=== PATIENT | female | born 1960 | race Caucasian/White ===

== ENCOUNTER → 2022-03-14 | Outpatient (CLI) | payer BC, SELFPAY ==
[2022-03-14 10:20] LABS: Absolute Lymphocyte Count 2.31 X10^3/uL (0.83-4.51); Absolute Neutrophil Count 3.6 X10^3/uL (2.0-7.7); Basophil# 0.06 X10^3/uL; Basophil% 0.9 % (0-1); Eosinophil# 0.03 X10^3/uL; Eosinophils% 0.5 % (0-5); Hematocrit 39.3 % (37-47); Hemoglobin 12.7 g/dL (12.0-15.0); Lymphocyte # 2.31 X10^3/ul (0.83-4.51); Lymphocyte % 35.1 % (19-41); Mean Corp Hgb Conc 32.3 g/dL (32-36); Mean Corpuscular Hgb 28.5 pg (27.0-32.0); Mean Corpuscular Volume 88.1 fL (81-99); Mean Platelet Vol. 8.4 fl (6.2-12.0); Monocyte# 0.56 X10^3/uL; Monocyte% 8.5 % (0-10); NRBC Flagged by Analyzer 0 % (0-5); Neutrophil # 3.61 X10^3/uL (2.7-7.7); Neutrophil % 54.7 % (47-70); Platelet Count 344 K/mm3 (150-450); RBC Distribution Width CV 12.5 % (11.6-14.6); RBC Distribution Width SD 40.6 fl (35.1-43.9); Red Blood Count 4.46 M/mm3 (4.2-5.4); White Blood Count 6.6 K/mm3 (4.4-11.0)
[2022-03-14 10:45] LABS: ALB/GLOB Ratio 1.1 RATIO (0.9-2.4); AST(SGOT) 19 U/L (15-37); Alanine Aminotransfer ALT/SGPT 23 U/L (13-56); Albumin, Serum 3.9 g/dL (3.2-5.0); Alkaline Phosphatase 42 U/L (45-117); Anion Gap 5 (5-15); BUN 10 mg/dL (7-18); Calcium,Total 8.7 mg/dL (8.5-10.1); Chloride 104 mmol/L (98-107); Cholesterol 231 mg/dL (200); Creatinine, Serum 0.63 mg/dL (0.55-1.02); EST Glomerular Filtration Rate 103 mL/min (>60); Est Glom Filt Rate - Afr Amer 124 mL/min (>60); Globulin 3.6 g/dL (2.2-4.2); Glucose 80 mg/dL (74-106); High Density Lipoprotein 78 mg/dL; Potassium 3.9 mmol/L (3.5-5.1); Protein, Total 7.5 g/dL (6.4-8.2); Sodium Level 137 mmol/L (136-145); Triglycerides 90 mg/dL; Very Low Density Lipoprotein 18 mg/dL (5-40)
[2022-03-19 14:28] LABS: KEPPRA (LEVETIRACETAM) 14.5 ug/mL (10.0-40.0)
== END | disposition home or self-care (01) ==
LOC: LAB 09:30
PROVIDERS: PCP Family Medicine; Referring Provider Family Medicine; Visit Provider Family Medicine
DX: M20.61 Acquired deformities of toe(s), unspecified, right foot (principal); C67.2 Malignant neoplasm of lateral wall of bladder; G40.909 Epilepsy, unspecified, not intractable, without status epilepticus; Z13.220 Encounter for screening for lipoid disorders
CPT/HCPCS: 36415; 80053; 80061; 80177; 85025

== ENCOUNTER → 2022-08-22 | Outpatient (CLI) | payer BC, SELFPAY ==
[2022-08-22 11:23] LABS: Absolute Lymphocyte Count 2.17 X10^3/uL (0.83-4.51); Absolute Neutrophil Count 4.5 X10^3/uL (2.0-7.7); Basophil# 0.06 X10^3/uL; Basophil% 0.8 % (0-1); Eosinophil# 0.03 X10^3/uL; Eosinophils% 0.4 % (0-5); Hematocrit 39.6 % (37-47); Hemoglobin 12.7 g/dL (12.0-15.0); Lymphocyte # 2.17 X10^3/ul (0.83-4.51); Lymphocyte % 29.6 % (19-41); Mean Corp Hgb Conc 32.1 g/dL (32-36); Mean Corpuscular Hgb 28.7 pg (27.0-32.0); Mean Corpuscular Volume 89.4 fL (81-99); Mean Platelet Vol. 8.4 fl (6.2-12.0); Monocyte# 0.52 X10^3/uL; Monocyte% 7.1 % (0-10); NRBC Flagged by Analyzer 0 % (0-5); Neutrophil # 4.53 X10^3/uL (2.7-7.7); Neutrophil % 61.8 % (47-70); Platelet Count 339 K/mm3 (150-450); RBC Distribution Width CV 12.4 % (11.6-14.6); RBC Distribution Width SD 40.8 fl (35.1-43.9); Red Blood Count 4.43 M/mm3 (4.2-5.4); White Blood Count 7.3 K/mm3 (4.4-11.0)
[2022-08-22 11:47] LABS: ALB/GLOB Ratio 1.1 RATIO (0.9-2.4); AST(SGOT) 13 U/L (15-37); Alanine Aminotransfer ALT/SGPT 22 U/L (13-56); Albumin, Serum 3.9 g/dL (3.2-5.0); Alkaline Phosphatase 40 U/L (45-117); Anion Gap 5 (5-15); BUN 13 mg/dL (7-18); BUN/Creat Ratio 21.1 RATIO (10-20); Calcium,Total 8.9 mg/dL (8.5-10.1); Chloride 103 mmol/L (98-107); Cholesterol 228 mg/dL (200); Creatinine, Serum 0.62 mg/dL (0.55-1.02); EST Glomerular Filtration Rate 105 mL/min (>60); Est Glom Filt Rate - Afr Amer 127 mL/min (>60); Globulin 3.5 g/dL (2.2-4.2); Glucose 86 mg/dL (74-106); High Density Lipoprotein 91 mg/dL; Potassium 3.9 mmol/L (3.5-5.1); Protein, Total 7.4 g/dL (6.4-8.2); Sodium Level 138 mmol/L (136-145); Triglycerides 81 mg/dL; Very Low Density Lipoprotein 16 mg/dL (5-40)
[2022-08-22 12:12] LABS: HIV - WCH Non-Reactive (Nonreactive)
== END | disposition home or self-care (01) ==
PROVIDERS: PCP Family Medicine
DX: G40.909 Epilepsy, unspecified, not intractable, without status epilepticus (principal); C67.2 Malignant neoplasm of lateral wall of bladder; Z13.220 Encounter for screening for lipoid disorders; Z11.4 Encounter for screening for human immunodeficiency virus [HIV]; Z11.59 Encounter for screening for other viral diseases
CPT/HCPCS: 36415; 80053; 80061; 80177; 85025; 86703; 86803; 86804

== ENCOUNTER → 2022-11-03 | Outpatient (CLI) | payer BC, SELFPAY ==
[2022-11-04 18:49] LABS: KEPPRA (LEVETIRACETAM) 13.2 ug/mL (10.0-40.0)
== END | disposition home or self-care (01) ==
PROVIDERS: PCP Family Medicine; Referring Provider Family Medicine; Visit Provider Family Medicine
DX: G40.909 Epilepsy, unspecified, not intractable, without status epilepticus (principal)
CPT/HCPCS: 36415; 80177

== ENCOUNTER → 2023-02-27 | Outpatient (CLI) | payer BC, SELFPAY ==
[2023-02-27 16:18] LABS: Absolute Lymphocyte Count 1.98 X10^3/uL (0.83-4.51); Absolute Neutrophil Count 3.9 X10^3/uL (2.0-7.7); Basophil# 0.07 X10^3/uL; Basophil% 1.1 % (0-1); Eosinophil# 0.06 X10^3/uL; Eosinophils% 0.9 % (0-5); Hematocrit 39.1 % (37-47); Hemoglobin 12.5 g/dL (12.0-15.0); Lymphocyte # 1.98 X10^3/ul (0.83-4.51); Lymphocyte % 30.7 % (19-41); Mean Corpuscular Hgb 28.3 pg (27.0-32.0); Mean Corpuscular Volume 88.7 fL (81-99); Mean Platelet Vol. 9.1 fl (6.2-12.0); Monocyte# 0.42 X10^3/uL; Monocyte% 6.5 % (0-10); NRBC Flagged by Analyzer 0 % (0-5); Neutrophil # 3.91 X10^3/uL (2.7-7.7); Neutrophil % 60.6 % (47-70); Platelet Count 364 K/mm3 (150-450); RBC Distribution Width CV 12.6 % (11.6-14.6); RBC Distribution Width SD 40.7 fl (35.1-43.9); Red Blood Count 4.41 M/mm3 (4.2-5.4); White Blood Count 6.5 K/mm3 (4.4-11.0)
[2023-02-27 16:36] LABS: AST(SGOT) 14 U/L (15-37); Alanine Aminotransfer ALT/SGPT 23 U/L (13-56); Albumin, Serum 3.6 g/dL (3.2-5.0); Alkaline Phosphatase 48 U/L (45-117); Anion Gap 6 (5-15); BUN 11 mg/dL (7-18); BUN/Creat Ratio 15.1 RATIO (10-20); Calcium,Total 8.5 mg/dL (8.5-10.1); Chloride 107 mmol/L (98-107); Creatinine, Serum 0.73 mg/dL (0.55-1.02); EST Glomerular Filtration Rate 86 mL/min (>60); Est Glom Filt Rate - Afr Amer 104 mL/min (>60); Globulin 3.6 g/dL (2.2-4.2); Glucose 94 mg/dL (74-106); Iron 98 ug/dL (50-170); Iron Binding Capacity,Total 320 ug/dL (250-450); Magnesium 2.2 mg/dL (1.6-2.6); PERCENT IRON SATURATION 30.6 % (15.0-55.0); Potassium 3.9 mmol/L (3.5-5.1); Protein, Total 7.2 g/dL (6.4-8.2); Sodium Level 141 mmol/L (136-145)
[2023-02-27 16:47] LABS: Vitamin D,25 Hydroxy 39.7 ng/mL
[2023-03-02 17:07] LABS: KEPPRA (LEVETIRACETAM) 10.5 ug/mL (10.0-40.0)
== END | disposition home or self-care (01) ==
PROVIDERS: PCP Family Medicine; Referring Provider Family Medicine; Visit Provider Family Medicine
DX: Z00.00 Encounter for general adult medical examination without abnormal findings (principal); G40.909 Epilepsy, unspecified, not intractable, without status epilepticus; R25.2 Cramp and spasm
CPT/HCPCS: 36415; 80053; 80177; 82306; 83540; 83550; 83735; 85025

== ENCOUNTER → 2023-03-31 | Outpatient (CLI) | payer BC, SELFPAY | END | disposition home or self-care (01) | LOC: MTLAB 11:00 | PROVIDERS: PCP Family Medicine; Referring Provider Urology; Visit Provider Urology | DX: C67.4 Malignant neoplasm of posterior wall of bladder (principal) | CPT/HCPCS: 87086; 87088 ==

== ENCOUNTER → 2023-04-23 | Outpatient (CLI) | payer BC, SELFPAY ==
--- NOTE | 2023-04-23 10:11 | BD_ITS ---
STUDY: DUAL ENERGY X-RAY ABSORPTIOMETRY / DXA REASON FOR EXAM: Female, 62 years old. 627.8Menopausal postmenopausal BONE DENSITY REASON FOR EXAM TECHNIQUE: Bone Mineral Density (BMD) measurements of lumbar spine and bilateral hips were obtained. COMPARISON: None. FINDINGS: Lumbar Spine (L1-L4): g/cm2 (1.048) / T-score (0.0) / Z-score (1.6) Findings are suggestive of normal bone density with a low fracture risk. Left Femur Total: g/cm2 (0.839) / T-score (-0.8) / Z-score (0.2) Left Femoral Neck: g/cm2 (0.725) / T-score (-1.1) / Z-score (0.3) Right Femur Total: g/cm2 (0.799) / T-score (-1.2) / Z-score (-0.1) Right Femoral Neck: g/cm2 (0.678) / T-score (-1.5) / Z-score (-0.1) BD/Dexa Bone Density Study IMPRESSION: The patient is considered osteopenic as outlined below according to World Luis Organization (WHO) criteria with a low fracture risk. Reference Information: The T-score is the number of standard deviations above or below the standard which is normal for young adults at their peak bone mineral density. The World Health Organization (WHO) interprets the T-scores as follows: Above -1 Normal bone density Between -1 and -2.5 Osteopenia Equal to / or below -2.5 Osteoporosis As a practical clinical guideline, osteopenia may be graded as follows: Mild -1 through -1.5 Moderate -1.6 through -2.0 Severe -2.1 through -2.4 The Z-score is the number of standard deviations above or below age-matched controls. A Z-score of less than -1.5 would be considered abnormal. References: 1. NIH Osteoporosis and Related Bone Diseases www osteo.org 2. International Society for Clinical Densitometry www iscd.org 3. National Osteoporosis Foundation www nof.org Electronically Signed: Blake Brewer MD at 13:04 EDT ,
--- NOTE | 2023-04-23 10:23 | RAD_ITS ---
STUDY: X-RAY - RIGHT FOOT CLINICAL: Female, 62 years old. BUNION TECHNIQUE: 3 view(s) of the foot. COMPARISON: None. FINDINGS: Normal talus, calcaneus, and tarsal bones. Normal visualized subtalar, talonavicular, calcaneocuboid, tarsal and tarsometatarsal articulations. Normal metatarsi. There is degenerative arthrosis of the metatarsophalangeal joint of the hallux . There is mild hallux valgus of the first metatarsophalangeal joint with mild adjacent soft tissue swelling. Normal tibial and fibular sesamoid bones. Normal interphalangeal joint of the great toe. Normal phalanges of the great toe. Normal second through fifth metatarsophalangeal joints. Normal interphalangeal joints and phalanges of the lesser toes. The soft tissue structures are unremarkable. There is no demonstrated fracture. 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 Minor adjacent soft tissue swelling along the medial joint. No acute fracture or subluxation. No bony destructive changes. Electronically Signed: Maggie Ernandez MD at 21:01 EDT ,
--- NOTE | 2023-04-23 10:25 | RAD_ITS ---
STUDY: X-RAY - LEFT FOOT CLINICAL: Female, 62 years old. BUNION TECHNIQUE: 3 view(s) of the foot. COMPARISON: None. FINDINGS: Normal talus, calcaneus, and tarsal bones. Normal visualized subtalar, talonavicular, calcaneocuboid, tarsal and tarsometatarsal articulations. Normal metatarsi. There is degenerative arthrosis of the metatarsophalangeal joint of the hallux . Mild soft tissue swelling with mild angulation at the first metatarsophalangeal joint suggestive of mild hallux valgus. Normal tibial and fibular sesamoid bones. Normal interphalangeal joint of the great toe. Normal phalanges of the great toe. Normal second through fifth metatarsophalangeal joints. Normal interphalangeal joints and phalanges of the lesser toes. The soft tissue structures are unremarkable. There is no demonstrated fracture. RAD/Foot min 3 Views IMPRESSION: Mild degenerative disease at the first metatarsophalangeal joint with mild hallux pelvis and associated mild soft tissue swelling. No acute fracture or subluxation. No destructive bony changes seen. Electronically Signed: Maggie Ernandez MD at 20:59 EDT ,
== END | disposition home or self-care (01) ==
PROVIDERS: PCP Family Medicine; Referring Provider Family Medicine; Visit Provider Family Medicine
DX: Z13.820 Encounter for screening for osteoporosis (principal); Z78.0 Asymptomatic menopausal state; M21.619 Bunion of unspecified foot
CPT/HCPCS: 73630; 77080

== ENCOUNTER → 2023-11-09 | Outpatient (CLI) | payer BC, SELFPAY | END | disposition home or self-care (01) | PROVIDERS: PCP Family Medicine; Referring Provider Urology; Visit Provider Urology | DX: C67.4 Malignant neoplasm of posterior wall of bladder (principal) | CPT/HCPCS: 87086 ==

== ENCOUNTER → 2024-03-23 | Outpatient (CLI) | payer BC, SELFPAY ==
[2024-03-23 12:17] LABS: Absolute Lymphocyte Count 2.09 X10^3/uL (0.83-4.51); Absolute Neutrophil Count 3.2 X10^3/uL (2.0-7.7); Basophil# 0.05 X10^3/uL; Basophil% 0.8 % (0-1); Eosinophil# 0.04 X10^3/uL; Eosinophils% 0.7 % (0-5); Hematocrit 38.2 % (37-47); Hemoglobin 12.2 g/dL (12.0-15.0); Lymphocyte # 2.09 X10^3/ul (0.83-4.51); Lymphocyte % 35.2 % (19-41); Mean Corp Hgb Conc 31.9 g/dL (32-36); Mean Corpuscular Hgb 27.9 pg (27.0-32.0); Mean Corpuscular Volume 87.4 fL (81-99); Mean Platelet Vol. 8.5 fl (6.2-12.0); Monocyte# 0.58 X10^3/uL; Monocyte% 9.8 % (0-10); NRBC Flagged by Analyzer 0 % (0-5); Neutrophil # 3.15 X10^3/uL (2.7-7.7); Neutrophil % 53.2 % (47-70); Platelet Count 352 K/mm3 (150-450); RBC Distribution Width CV 12.9 % (11.6-14.6); RBC Distribution Width SD 40.9 fl (35.1-43.9); Red Blood Count 4.37 M/mm3 (4.2-5.4); White Blood Count 5.9 K/mm3 (4.4-11.0)
[2024-03-23 12:48] LABS: AST(SGOT) 21 U/L (15-37); Alanine Aminotransfer ALT/SGPT 23 U/L (13-56); Albumin, Serum 3.7 g/dL (3.2-5.0); Alkaline Phosphatase 41 U/L (45-117); Anion Gap 5 (5-15); BUN 13 mg/dL (7-18); BUN/Creat Ratio 19.5 RATIO (10-20); Calcium,Total 8.9 mg/dL (8.5-10.1); Chloride 106 mmol/L (98-107); Cholesterol 227 mg/dL (200); Creatinine, Serum 0.67 mg/dL (0.55-1.02); EST Glomerular Filtration Rate 95 mL/min (>60); Est Glom Filt Rate - Afr Amer 115 mL/min (>60); Globulin 3.6 g/dL (2.2-4.2); Glucose 88 mg/dL (74-106); High Density Lipoprotein 74 mg/dL; Potassium 3.8 mmol/L (3.5-5.1); Protein, Total 7.3 g/dL (6.4-8.2); Sodium Level 138 mmol/L (136-145); Triglycerides 81 mg/dL; Very Low Density Lipoprotein 16 mg/dL (5-40)
[2024-03-26 10:42] LABS: KEPPRA (LEVETIRACETAM) 51.1 ug/mL (10.0-40.0)
== END | disposition home or self-care (01) ==
PROVIDERS: PCP Family Medicine; Referring Provider Psychiatry & Neurology Sleep Medicine; Visit Provider Psychiatry & Neurology Sleep Medicine
DX: E78.01 Familial hypercholesterolemia (principal); G40.909 Epilepsy, unspecified, not intractable, without status epilepticus
CPT/HCPCS: 36415; 80053; 80061; 80177; 85025; 87086

== ENCOUNTER → 2024-05-20 | Outpatient (CLI) | payer OTHER, SELFPAY ==
[2024-05-20 10:54] LABS: BUN 15 mg/dL (7-18); Creatinine, Serum 0.65 mg/dL (0.55-1.02); EST Glomerular Filtration Rate 97 mL/min (>60); Est Glom Filt Rate - Afr Amer 118 mL/min (>60)
[2024-05-23 14:09] LABS: KEPPRA (LEVETIRACETAM) 43.6 ug/mL (10.0-40.0)
== END | disposition home or self-care (01) ==
PROVIDERS: PCP Family Medicine; Referring Provider Psychiatry & Neurology Sleep Medicine; Visit Provider Psychiatry & Neurology Sleep Medicine
DX: Z13.89 Encounter for screening for other disorder (principal); C67.4 Malignant neoplasm of posterior wall of bladder; G40.909 Epilepsy, unspecified, not intractable, without status epilepticus
CPT/HCPCS: 36415; 80177; 82565; 84520; 95819

== ENCOUNTER → 2024-05-25 | Outpatient (CLI) | payer OTHER, SELFPAY ==
--- NOTE | 2024-05-25 11:02 | MRI_ITS ---
INDICATION: SEIZURE EXAMINATION: MRI - MR Brain WO/W Contrast TECHNIQUE: Multiplanar and multisequence MR images of the brain were obtained without and with gadolinium. IV Contrast Dosage and Agent: None. COMPARISON: No relevant prior comparison study available FINDINGS: BRAIN PARENCHYMA: Multiple nonspecific T2 hyperintense lesions are seen in the periventricular and subcortical white matter in the right and left cerebral hemispheres may represent demyelinating lesions. No MRI evidence of hemorrhage. No evidence of acute infarct. No intracranial mass or mass effect. There is preservation of the byrne/white matter interface. Normal sella turcica, pituitary gland, infundibular stalk, optic chiasm and hypothalamus. Posterior fossa structures are unremarkable. INTERNAL AUDITORY CANALS: The internal auditory canals are well visualized and patent. No mass identified. CSF SPACES: Appropriate for age. No hydrocephalus. Basal cisterns are patent. VASCULAR SYSTEM: Normal flow voids in the major intracranial circulation. CALVARIUM, SKULL BASE, PARANASAL SINUSES AND MASTOID AIR CELLS: Clear. No expansile changes. ORBITS: Both globes, extraocular muscles, optic nerves and retrobulbar fat appear unremarkable. MRI/Brain W/WO Contrast IMPRESSION: Multiple nonspecific T2 hyperintense lesions are seen in the periventricular and subcortical white matter in the right and left cerebral hemispheres may represent demyelinating lesions. Electronically Signed: Jennifer Wyman MD at 7:12 EDT ,
[2024-05-25 11:42] LABS: CREATININE FINGERSTICK < 1.0 mg/dL (0.55-1.02); EGFR FINGERSTICK > 60.0000 mL/min (>60)
== END | disposition home or self-care (01) ==
LOC: MRI 10:58
PROVIDERS: PCP Family Medicine; Referring Provider Psychiatry & Neurology Sleep Medicine; Visit Provider Psychiatry & Neurology Sleep Medicine
DX: Z01.812 Encounter for preprocedural laboratory examination (principal); G40.909 Epilepsy, unspecified, not intractable, without status epilepticus
CPT/HCPCS: 70553; A9575

== ENCOUNTER → 2024-06-01 | Outpatient (CLI) | payer OTHER, SELFPAY ==
--- NOTE | 2024-06-01 08:30 | CT_ITS ---
INDICATION: Malignant neoplasm of posterior wall of bladder EXAMINATION: CT Abdomen And Pelvis W/ Contrast Injection TECHNIQUE: Helically acquired images were obtained of the abdomen and pelvis after IV contrast. A radiation dose optimization technique was used for this scan. IV Contrast dosage and agent: IV 100mL [id number]-[id number] Oral contrast: None. COMPARISON: None. FINDINGS: Visualized lung bases: Unremarkable Liver: Unremarkable Gallbladder: Contracted. Spleen: Unremarkable Pancreas: Unremarkable Adrenal Glands: Unremarkable Kidneys: Unremarkable Vasculature: Mild scattered aortoiliac atherosclerotic calcifications. GI Tract: Unremarkable Lymphadenopathy: None Peritoneum: No ascites. Bladder: Known bladder mass is not well-visualized on this examination. Reproductive organs: Unremarkable Bones/Soft tissues: There are diffuse degenerative changes of the spine. CT/Abdomen/Pelvis WITH Contrast IMPRESSION: No evidence of metastatic disease in the abdomen or pelvis. Electronically Signed: Albert Beck MD at 15:46 EDT ,
== END | disposition home or self-care (01) ==
LOC: CT 08:10
PROVIDERS: PCP Family Medicine; Referring Provider Urology; Visit Provider Urology
DX: C67.4 Malignant neoplasm of posterior wall of bladder (principal)
CPT/HCPCS: 74177; Q9967

== ENCOUNTER → 2024-06-17 | Outpatient (CLI) | payer OTHER, SELFPAY ==
--- NOTE | 2024-06-17 | LES_PTH ---
PATIENT: MARILIN MEMBRENO LOC: [facility] U#:[id number] AGE/SX: 63/F ROOM: RE06/17/[address]: DANIELA Lundy : 1960 BED: DIS: 06/17/2024 SPEC #: [id number] RECD: 06/17/24 14:02 STATUS: COURTNEY MOSES #: [id number] FARHAD: 06/17/24 00:[address]: Jodie Perez NP DEPT: SURGICAL PATHOLOGY RECD BY: Kevan Kebede ENTERED: 06/17/24 14:03 SP TYPE: Lesion OTHR DR: Dr. Dev Bermudez MD Tissues: A - Skin of neck, NOS B - Skin of arm C - Skin of arm Procedures: Surgery Specimen Level IV HEADER OPERATION: Excision lesions PRE-OP DIAGNOSIS: Lesions TISSUE SUBMITTED: A- Posterior neck lesion - shave biopsy, B- Left mid upper arm, C- Left dorsal forearm lesion MICROSCOPIC DIAGNOSIS A. Posterior neck lesion, shave biopsy: Focal ulceration and associated acute inflammation. Acanthosis, psoriasiform epidermal hyperplasia and hyperkeratosis. Negative for malignancy. See comment. B. Left upper arm lesion, punch biopsy: Benign vascular perforation consistent with hemangioma. Minimal actinic keratosis. Solar elastosis. Negative for malignancy. C. Left forearm lesion, punch biopsy: Actinic keratosis with mild to moderate atypia with focal verrucous keratosis like feature. Solar elastosis. Negative for malignancy. NICA. 06/20/2024 COMMENT A. Special stain for fungi is negative for organisms; matched control is appropriate. Clinical correlation and appropriate follow up are necessary. MICROSCOPIC DESCRIPTION Slides are reviewed. GROSS DESCRIPTION A. Received in fixative is one container labeled with the patient's name and designated Posterior neck shave biopsy. The specimen consists of a shave biopsy of lora-white skin measuring 0.7 x 0.3 x 0.1cm. The specimen is bisected and submitted entirely in one cassette. B. Received in fixative is one container labeled with the patient's name and designated Left upper arm. The specimen consists of a punch biopsy of lora-white skin measuring 0.5cm in diameter and 0.5cm in length. The entire specimen is submitted in one cassette. C. Received in fixative is one container labeled with the patient's name and designated Left forearm. The specimen consists of a punch biopsy of lora-white skin measuring 0.3cm in diameter and 0.5cm in length. The entire specimen is submitted in one cassette. SJ.mr 06/17/2024 TC:5 CPT:[id number], [id number]
== END | disposition home or self-care (01) ==
PROVIDERS: PCP Family Medicine; Referring Provider Nurse Practitioner Family; Visit Provider Nurse Practitioner Family
DX: L83 Acanthosis nigricans (principal); L57.0 Actinic keratosis
CPT/HCPCS: 88305

== ENCOUNTER → 2025-03-22 | Outpatient (CLI) | payer OTHER, SELFPAY ==
[2025-03-22 17:53] LABS: Hematocrit 35.9 % (37-47); Hemoglobin 11.8 g/dL (12.0-15.0); Immature Granulocytes Count 0.010 X10^3/uL (0.0-0.0); Mean Corp Hgb Conc 32.9 g/dL (32-36); Mean Corpuscular Volume 86.3 fL (81-99); Mean Platelet Vol. 8.8 fl (6.2-12.0); NRBC Flagged by Analyzer 0 % (0-5); Platelet Count 370 K/mm3 (150-450); RBC Distribution Width CV 13.2 % (11.6-14.6); RBC Distribution Width SD 41.1 fl (35.1-43.9); Red Blood Count 4.16 M/mm3 (4.2-5.4); White Blood Count 6.8 K/mm3 (4.4-11.0)
[2025-03-22 18:39] LABS: AST(SGOT) 20 U/L (<=31); Alanine Aminotransfer ALT/SGPT 18 U/L (<=34); Albumin, Serum 4.4 g/dL (3.4-4.8); Alkaline Phosphatase 46 U/L (35-104); Anion Gap 14 (5-15); BUN 16 mg/dL (4-19); BUN/Creat Ratio 24.2 RATIO (10-20); Calcium,Total 9.3 mg/dL (7.6-11.0); Carbon Dioxide 23.1 mmol/L (21.0-32.0); Chloride 103 mmol/L (98-108); Cholesterol 220 mg/dL (<=200); Globulin 2.9 g/dL (2.2-4.2); Glucose 92 mg/dL (70-99); Low Density Lipoprotein Calc. 122 mg/dL; Potassium 4.0 mmol/L (3.3-5.1); Triglycerides 68 mg/dL; Very Low Density Lipoprotein 14 mg/dL (5-40); Vitamin D,25 Hydroxy 59.6 ng/mL (30-100); cholesterol:hdl ratio screen 2.61
[2025-03-26 06:38] LABS: KEPPRA (LEVETIRACETAM) 25.4 ug/mL (10.0-40.0)
== END | disposition home or self-care (01) ==
PROVIDERS: PCP Family Medicine; Referring Provider Family Medicine; Visit Provider Family Medicine
DX: G40.909 Epilepsy, unspecified, not intractable, without status epilepticus (principal); M85.89 Other specified disorders of bone density and structure, multiple sites; E78.2 Mixed hyperlipidemia
CPT/HCPCS: 36415; 80053; 80061; 80177; 82306; 85025

== ENCOUNTER → 2025-04-13 | Outpatient (CLI) | payer OTHER, SELFPAY ==
[2025-04-13 09:46] LABS: Hematocrit 37.8 % (37-47); Hemoglobin 12.4 g/dL (12.0-15.0); Immature Granulocytes Count 0.010 X10^3/uL (0.0-0.0); Mean Corp Hgb Conc 32.8 g/dL (32-36); Mean Corpuscular Volume 86.5 fL (81-99); Mean Platelet Vol. 8.2 fl (6.2-12.0); NRBC Flagged by Analyzer 0 % (0-5); Platelet Count 349 K/mm3 (150-450); RBC Distribution Width CV 12.8 % (11.6-14.6); RBC Distribution Width SD 40.7 fl (35.1-43.9); Red Blood Count 4.37 M/mm3 (4.2-5.4); White Blood Count 5.5 K/mm3 (4.4-11.0)
[2025-04-13 11:15] LABS: Ferritin 179 ng/mL (22-378); Iron 107 ug/dL (50-170); Iron Binding Capacity,Total 280 ug/dL (250-450); Iron Binding Capacity,Unsat 173 ug/dL (228-428); Vitamin B12 736 pg/mL (180-914)
[2025-04-13 12:14] LABS: FOLATES,SERUM (FOLIC ACID) 25.80 ng/mL (4.60-34.80)
== END | disposition home or self-care (01) ==
PROVIDERS: PCP Family Medicine; Referring Provider Family Medicine; Visit Provider Family Medicine
DX: D64.9 Anemia, unspecified (principal)
CPT/HCPCS: 36415; 82607; 82728; 82746; 83540; 83550; 85025

== ENCOUNTER → 2025-04-13 | Outpatient (CLI) | payer OTHER, SELFPAY ==
--- NOTE | 2025-04-13 10:15 | BI_ITS ---
EXAM: SCRN MAMM (CAD)W/ABDIRIZAK BILAT DATE: 04/13/2025 CLINICAL HISTORY: F, Age 64 y/o, SCREEN FOR BREAST CANCER TECHNIQUE: Procedure Code: [id number] Modality: MG Procedure: SCRN MAMM (CAD)W/ABDIRIZAK BILAT COMPARISON: Prior exam(s) were compared FINDINGS: TISSUE DENSITY: The breasts are heterogeneously dense, which may obscure small masses. Bilateral Breast Mammographic Findings: No suspicious masses, calcifications or other abnormalities are identified. BI/SCRN MAMM (CAD)W/ABDIRIZAK BILAT IMPRESSION: No mammographic evidence of malignancy OVERALL FINAL ASSESSMENT BI-RADS 1: NEGATIVE. RECOMMENDATION: Routine annual follow-up in 1 Year A letter with findings and recommendations will be mailed to the patient. Reading Location: [id number]
== END | disposition home or self-care (01) ==
LOC: OPBI 09:32
PROVIDERS: PCP Family Medicine; Referring Provider Obstetrics & Gynecology; Visit Provider Obstetrics & Gynecology
DX: Z12.31 Encounter for screening mammogram for malignant neoplasm of breast (principal)
CPT/HCPCS: 77063; 77067

== ENCOUNTER → 2025-04-28 | Outpatient (CLI) | payer OTHER, SELFPAY ==
[2025-04-28 12:29] LABS: Hematocrit 37.5 % (37-47); Hemoglobin 12.1 g/dL (12.0-15.0); Mean Corp Hgb Conc 32.3 g/dL (32-36); Mean Corpuscular Volume 87.8 fL (81-99); Mean Platelet Vol. 8.8 fl (6.2-12.0); Platelet Count 369 K/mm3 (150-450); RBC Distribution Width CV 13.1 % (11.6-14.6); RBC Distribution Width SD 41.6 fl (35.1-43.9); Red Blood Count 4.27 M/mm3 (4.2-5.4); White Blood Count 5.6 K/mm3 (4.4-11.0)
[2025-04-28 13:19] LABS: Anion Gap 10 (5-15); BUN 14 mg/dL (4-19); BUN/Creat Ratio 20.9 RATIO (10-20); Calcium,Total 9.1 mg/dL (7.6-11.0); Carbon Dioxide 25.3 mmol/L (21.0-32.0); Chloride 104 mmol/L (98-108); Glucose 81 mg/dL (70-99); Potassium 4.2 mmol/L (3.3-5.1)
== END | disposition home or self-care (01) ==
LOC: MTLAB 09:54
PROVIDERS: PCP Family Medicine; Referring Provider Family Medicine; Visit Provider Family Medicine
DX: D64.9 Anemia, unspecified (principal)
CPT/HCPCS: 36415; 80048; 85027

== ENCOUNTER → 2025-05-18 | Outpatient (CLI) | payer OTHER, SELFPAY ==
--- NOTE | 2025-05-18 12:47 | BD_ITS ---
PROCEDURE: DEXA BONE DENSITY STUDY 05/18/2025 REASON FOR EXAM: F, age 64 y/o . Postmenopausal screening. TECHNIQUE: Procedure Code: [id number] Modality: DX Procedure: DEXA BONE DENSITY STUDY COMPARISON: 2022 FINDINGS: BMD and T-SCORES Lumbar spine: 1.037 g/cm2, T-score -0.1 Levels: L1 through L4 Change from prior: Decrease of 1.1%. Left femoral neck: 0.703 g/cm2, T-score -1.3 Femoral neck comparison data not recommended for monitoring change. Prior T-score Left total hip: 0.789 g/cm2, T-score -1.3 Change from prior: Decrease of 6%. Right femoral neck: 0.698 g/cm2, T-score -1.4 Femoral neck comparison data not recommended for monitoring change. Prior T-score Right total hip: 0.797 g/cm2, T-score -1.2 Change from prior: . The World Health Organization has defined the following categories based on bone density: Normal bone density: T-score equal to or greater than -1.0 Osteopenia: T-score between -1.0 and -2.5 Osteoporosis: T-score equal to or less than -2.5 FRAX (or Comparable) Fracture Risk Assessment: 10 Year Probability of Fracture: Major Osteoporotic Fracture: 8.5% Hip Fracture: 0.8% (Note: FRAX is not to be reported in setting of normal range bone density, osteoporosis on DEXA, known history of osteoporosis, prior osteoporotic hip or vertebral fracture, or for any patient undergoing pharmacological treatment for bone loss.) The National Osteoporosis Foundation (NOF) recommends pharmacological treatment for patients with a FRAX 10-year risk of 3% or higher for a hip fracture, or 20% or higher for a major osteoporotic fracture, to prevent osteoporosis and reduce fracture risk. The patient does not meet the pharmacological treatment recommendations for prevention of osteoporosis. BD/Dexa Bone Density Study IMPRESSION: OSTEOPENIA. Recommend follow-up as clinically warranted. Reading Location: [id number]
== END | disposition home or self-care (01) ==
PROVIDERS: PCP Family Medicine; Referring Provider Family Medicine; Visit Provider Family Medicine
DX: Z78.0 Asymptomatic menopausal state (principal); M85.89 Other specified disorders of bone density and structure, multiple sites; D64.9 Anemia, unspecified
CPT/HCPCS: 77080; 82274

== ENCOUNTER → 2025-06-09 | Outpatient (CLI) | payer OTHER, SELFPAY | END | disposition home or self-care (01) | LOC: MTLAB 10:03 | PROVIDERS: PCP Family Medicine; Referring Provider Urology; Visit Provider Urology | DX: C67.4 Malignant neoplasm of posterior wall of bladder (principal) | CPT/HCPCS: 36415; 82565 ==

== ENCOUNTER → 2025-06-13 | Outpatient (CLI) | payer OTHER, SELFPAY ==
--- NOTE | 2025-06-13 14:07 | CT_ITS ---
PROCEDURE: CT/Abdomen/Pelvis WITH Contrast
== END | disposition home or self-care (01) ==
LOC: CT 14:06
PROVIDERS: PCP Family Medicine; Referring Provider Urology; Visit Provider Urology
DX: C67.8 Malignant neoplasm of overlapping sites of bladder (principal)
CPT/HCPCS: 74177; Q9967

== ENCOUNTER → 2025-07-31 | Outpatient (CLI) | payer OTHER, SELFPAY ==
[2025-08-02 12:09] LABS: HPV APTIMA, High Risk Negative (Negative)
== END | disposition home or self-care (01) ==
LOC: LABSPEC 12:01
PROVIDERS: PCP Family Medicine; Visit Provider Obstetrics & Gynecology
DX: Z12.4 Encounter for screening for malignant neoplasm of cervix (principal)
CPT/HCPCS: 87624; 88175; G0145

== ENCOUNTER → 2025-08-08 | Outpatient (CLI) | payer OTHER, SELFPAY ==
--- NOTE | 2025-08-08 10:54 | MRI_ITS ---
PROCEDURE: BREAST BILATERAL W/O AND W 08/08/2025 REASON FOR EXAM: DENSE BREASTS AND FAMILY HISTORY OF BREAST CA. TECHNIQUE: Procedure Code: [id number] Modality: MR Procedure: BREAST BILATERAL W/O AND W CONTRAST: 15 cc Clariscan COMPARISON: Mammogram study dated 04/13/2025 and 10/07/2023 FINDINGS: TISSUE DENSITY: The breasts are heterogeneously dense, which may obscure small masses. Background Parenchymal Enhancement: Moderate. This may decrease the sensitivity of breast MRI. RIGHT Breast: No suspicious mass or non-mass enhancement. LEFT Breast: No suspicious mass or non-mass enhancement. Other Findings: No suspicious axillary or internal mammary lymph nodes. Visualized portions of the thoracic and abdominal viscera are unremarkable. MRI/Breast Bilateral W/O and W IMPRESSION: OVERALL FINAL ASSESSMENT BI-RADS 1: NEGATIVE RECOMMENDATION: Routine annual follow-up in 1 Year The patient should return in March 2026 for routine yearly screening mammography. Reading Location: [id number]
== END | disposition home or self-care (01) ==
LOC: OPMRI 10:53
PROVIDERS: PCP Family Medicine; Referring Provider Obstetrics & Gynecology; Visit Provider Obstetrics & Gynecology
DX: R92.30 Dense breasts, unspecified (principal); Z80.3 Family history of malignant neoplasm of breast
CPT/HCPCS: 77049; A9575; C8908